=== PATIENT | female | born 1950 | race Caucasian/White ===

== ENCOUNTER 2020-08-28 10:57 | Outpatient (NON) | payer MEDICARE, SELFPAY ==
[2020-08-30 16:41] LABS: SARS-CoV-2 RNA PCR Negative
== END 2020-08-28 10:58 ==
LOC: ANHCOVIDDT 11:03
PROVIDERS: PCP Internal Medicine; Visit Provider Internal Medicine
DX: Z20.828 Contact with and (suspected) exposure to other viral communicable diseases (principal)
CPT/HCPCS: 87635; C9803; U0003

== ENCOUNTER 2021-12-09 15:25 | Outpatient (CLI) | payer MEDICARE, SELFPAY ==
--- NOTE | ~2021-12-09 | MM_ITS ---
EXAMINATION: MM screening hina BI w elsie HISTORY: Screening mammogram TECHNIQUE: Craniocaudal and mediolateral oblique 3-D tomosynthesis images were obtained and synthetic 2-D images were generated. CAD analysis was submitted and interpreted. COMPARISON: No prior mammogram is available for comparison at this institution. BREAST PARENCHYMAL COMPOSITION: There are scattered areas of fibroglandular density. FINDINGS: There is no evidence of suspicious mass, calcification, or architectural distortion to sugg est malignancy in either breast. IMPRESSION: 1. No mammographic evidence of malignancy. 2. Recommend routine screening mammography in one year. BI-RADS Category 1: Negative Reviewed, dictated and finalized at location A. K OPERATOR
== END 2021-12-09 15:26 | disposition home or self-care (01) ==
PROVIDERS: PCP Internal Medicine; Visit Provider Internal Medicine
DX: Z12.31 Encounter for screening mammogram for malignant neoplasm of breast (principal)
CPT/HCPCS: 77063; 77067

== ENCOUNTER 2022-03-18 10:42 | Outpatient (CLI) | payer MEDICARE, SELFPAY ==
--- NOTE | ~2022-03-18 | DEXA_ITS ---
Bone Density Report Name: CYNDI ROSS Age: 71 Sex: Female Ethnicity: White Date of : 1950 Indication: postmenopausal; screening for osteoporosis; hysterectomy; Referring Provider: TREY, LORAINE Garcia Study: Bone densitometry was performed. Exam Date: March 18, 2022 Accession number: [id number] Bone Density: Region BMD T-score Z-score Classification AP Spine(L1, L2) 1.049 0.6 2.6 Normal Femoral Neck (Left) 0.814 -0.3 1.5 Normal Total Hip (Left) 0.951 0.1 1.6 Normal Femoral Neck (Right) 0.783 -0.6 1.2 Normal Total Hip (Right) 0.975 0.3 1.8 Normal Total Hip Mean 0.963 0.2 1.7 Normal World Health Organization criteria for BMD impression classify patients as: Normal (T-score at or above -1.0), Osteopenia (T-score between -1.0 and -2.5), or Osteoporosis (T-score at or below -2.5). 10-year Fracture Risk: FRAX not reported because: All T-scores for Spine Total, Hip Total, Femoral Neck at or above -1.0 Clinical Information Provided by Patient: Has used the following medications: Vitamin D, Calcium Has the following medical conditions: Hysterectomy Patient maximum height was 61 Menopause Age: 50 No regular weight bearing exercise Onset of menses at age 14 Number of children 2 Impression: The patient has normal bone mass. Discussion: BONE DENSITY IS ABOVE THE MINIMUM DESIRABLE LEVEL AT ALL SKELETAL SITES TESTED. This patient?s bone mineral density is above the minimum desirable level (T-score -1.0 or better) at all sites measured. The patient should follow a healthful lifestyle (good nutrition with adequate calcium and vitamin D, and appropriate weight-bearing exercise). Follow-Up: Consider repeating this study in 5 years or sooner if there is some new clinical indication. Reported by: OSWALDO on 03/18/2022 11:10:00 AM. Reviewed, dictated and finalized at location [facility]
== END 2022-03-18 10:43 | disposition home or self-care (01) ==
PROVIDERS: PCP Internal Medicine; Visit Provider Internal Medicine
DX: Z78.0 Asymptomatic menopausal state (principal)
CPT/HCPCS: 77080

== ENCOUNTER 2022-09-05 13:28 | Emergency (ER) | payer MEDICARE, SELFPAY ==
[2022-09-05 13:33] VITALS: BP 150/59; PULSE 80; RESP 16; TEMP 36.6; O2SAT 98
--- NOTE | 2022-09-05 13:36 | PC.NURSE ---
Pt decided to leave without being seen after learning that she would have to wait to be seen by erp to have CT ordered. States she will follow up with her pmd.
== END 2022-09-05 13:36 | disposition left against medical advice (07) ==
PROVIDERS: PCP Internal Medicine
DX: S09.90XA Unspecified injury of head, initial encounter (principal)
CPT/HCPCS: 99199